=== PATIENT | female | born 1955 | race Caucasian/White ===

== ENCOUNTER 2018-04-03 15:11 | Emergency (ER) | payer OTHER ==
[~2018-04-03] VITALS: Ht 162.6 cm; Wt 59.0 kg
[~2018-04-03 15:11] MED LIST: ASPIR 8181 M1 PO; ATORVASTATIN CA40 MG PO; CARVEDILOL3.125 MG PO; EFFIENT10 MG PO; HYDROXYCHLOROQ200 M1 PO; NITROGLYCERIN0.4 MG SUBLING
[2018-04-03 15:44] LABS: ABSOLUTE BASOPHILS 0.1 thou/uL (0.0-0.2); ABSOLUTE EOSINOPHILS 0.2 thou/uL (0.0-0.7); ABSOLUTE LYMPHOCYTES 1.5 thou/uL (0.8-5.3); ABSOLUTE NEUTROPHILS 7.1 thou/uL (1.6-8.1); BASOPHILS 0.8 %; EOSINOPHILS 1.9 %; MCH 32.1 pg (26.0-34.0); MCHC 34.4 g/dL (28.0-37.0); MCV 93.1 fL (80.0-100.0); MONOCYTES 10.4 %; MPV 6.4 fl. (7.2-11.1); NUCLEATED RBCS 0 /100WBC; PLATELET COUNT* 340 thou/uL (150-400); POLYS 71.9 %; RBC 3.43 mil/uL (4.20-5.00); WBC 9.8 thou/uL (4.0-11.0)
[2018-04-03 15:52] LABS: INR 1.1; PROTIME 11.1 Seconds (9.20-11.50)
[2018-04-03 16:01] LABS: ANION GAP 6 mmol/L (7-16); BUN 16 mg/dL (7-18); CALCIUM 9.1 mg/dL (8.5-10.1); CHLORIDE 101 mmol/L (98-107); CO2 31 mmol/L (21-32); GLUCOSE 112 mg/dL (70-99); POTASSIUM 3.9 mmol/L (3.5-5.1); SODIUM 138 mmol/L (136-145); TROPONIN-I LEVEL <0.06 ng/mL (<0.06)
[2018-04-03 16:03] LABS: ALBUMIN 3.6 g/dL (3.4-5.0); ALKALINE PHOSPHATASE 83 U/L (46-116); LIPASE 169 U/L (73-393); NT-PRO BRAIN NAT PEPTIDE 179 pg/mL (<300); SGOT 20 U/L (15-37); SGPT 36 U/L (30-65); TOTAL BILIRUBIN 0.5 mg/dL (<0.1-1.0); TOTAL PROTEIN 7.8 g/dL (6.4-8.2)
[2018-04-03 18:26] VITALS: BP 98/65
--- NOTE | 2018-04-04 11:34 | EKG ---
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 : [id number] Requested By: Brett Strickland Order Number: [id number] MD: Aaron Latham Measurements Intervals [place] Rate: 71 P: 87 TN: 125 QRS: 94 QRSD: 96 T: 116 QT: 352 QTc: 383 Interpretive Statements Sinus rhythm Right axis deviation Borderline repolarization abnormality Baseline wander in lead(s) II,III,aVL,aVF Compared to ECG 03/30/2018 03:15:56 no change Electronically Signed On 04-04-2018 11:33:51 [employer] CONSULTANT by Aaron Latham [email or web address] <ELECTRONICALLY SIGNED> By: Aaron Latham MD, [facility] 04/04/18 1133 1515 1515 Aaron Latham MD, [facility] /EPI
== END 2018-04-03 18:26 | disposition home or self-care (01) ==
LOC: M.ERS 15:11
PROVIDERS: Emergency Medicine
DX: R07.89 Other chest pain (principal); Z90.13 Acquired absence of bilateral breasts and nipples; Z96.642 Presence of left artificial hip joint; F17.210 Nicotine dependence, cigarettes, uncomplicated

== ENCOUNTER 2019-12-06 16:26 | Emergency (ER) | payer OTHER, MEDICAID ==
[~2019-12-06] VITALS: Ht 162.6 cm; Wt 59.0 kg
[2019-12-06 16:59] LABS: ABSOLUTE BASOPHILS 0.1 thou/uL (0.0-0.2); ABSOLUTE EOSINOPHILS 0.2 thou/uL (0.0-0.7); ABSOLUTE NEUTROPHILS 7.4 thou/uL (1.6-8.1); BASOPHILS 0.6 %; EOSINOPHILS 1.3 %; HEMATOCRIT 41.3 % (37.0-47.0); HEMOGLOBIN 14.1 gm/dL (12.0-15.0); LYMPHOCYTES 26.1 %; MCH 32.5 pg (26.0-34.0); MCHC 34.1 g/dL (28.0-37.0); MCV 95.5 fL (80.0-100.0); MONOCYTES 8.2 %; NUCLEATED RBCS 0 /100WBC; PLATELET COUNT* 271 thou/uL (150-400); POLYS 63.8 %; RBC 4.32 mil/uL (4.20-5.00); RDW-CV 12.3 % (10.5-14.5); WBC 11.6 thou/uL (4.0-11.0)
[2019-12-06 17:05] LABS: URINE BILIRUBIN NEGATIVE (Negative); URINE BLOOD 3+ (Negative); URINE COLOR YELLOW; URINE GLUCOSE-RANDOM NEGATIVE (Negative); URINE KETONES NEGATIVE (Negative); URINE LEUKOCYTES-REFLEX NEGATIVE (Negative); URINE NITRITE-REFLEX NEGATIVE (Negative); URINE PROTEIN NEGATIVE (Negative); URINE SPECIFIC GRAVITY 1.025 (1.005-1.030); URINE UROBILINOGEN 0.2 E.U./dl (0.2-1.0)
[2019-12-06 17:08] LABS: CALCIUM 8.8 mg/dL (8.5-10.1); POTASSIUM 3.6 mmol/L (3.5-5.1)
[2019-12-06 17:10] LABS: APTT 22.1 Seconds (25.0-31.3); PROTIME 10.4 Seconds (9.20-11.50)
[2019-12-06 17:12] LABS: SQUAMOUS 0-3 Few /LPF (0-3); URINE CLARITY HAZY
[2019-12-06 17:13] LABS: BACTERIA-REFLEX None Seen /HPF (None Seen); CASTS None Seen /LPF (None Seen); CRYSTALS None Seen /LPF (None Seen); MUCUS 0-3 Light strn/LPF (None Seen); URINE RBC 3-10 Few /HPF (0-2); URINE WBC-REFLEX None Seen /HPF (0-5)
[2019-12-06 17:13] LABS: TOTAL BILIRUBIN 0.3 mg/dL (<0.1-1.0); TOTAL PROTEIN 7.7 g/dL (6.4-8.2)
[2019-12-06] MEDS ORDERED: PERCOCET 5-3251 EACH PO ×2 (17:14→18:04)
[2019-12-06] MEDS ORDERED: FLEXERIL PO ×2 (17:14→18:04)
[2019-12-06] MEDS ORDERED: PLAVIX 75 MG TA75 MG PO (17:35)
[2019-12-06 18:32] VITALS: BP 133/54
== END 2019-12-06 18:32 | disposition home or self-care (01) ==
LOC: M.ERS 16:26
PROVIDERS: Family Medicine
DX: S62.514A Nondisplaced fracture of proximal phalanx of right thumb, initial encounter for closed fracture (principal); S42.001A Fracture of unspecified part of right clavicle, initial encounter for closed fracture; F17.210 Nicotine dependence, cigarettes, uncomplicated; Z79.899 Other long term (current) drug therapy; Z79.82 Long term (current) use of aspirin; W11.XXXA Fall on and from ladder, initial encounter; Y93.89 Activity, other specified; Y92.89 Other specified places as the place of occurrence of the external cause; Y99.8 Other external cause status